=== PATIENT | female | born 1990 | race Caucasian/White ===

== ENCOUNTER 2023-06-30 06:06 | Emergency (ER) | payer OTHER, SELFPAY ==
[2023-06-30 06:07] VITALS: BP 189/113
[2023-06-30 06:58] VITALS: BMI 36.8
[2023-06-30 07:20] LABS: Urine Albumin Negative (Neg - Trace); Urine Bilirubin Negative (Negative); Urine Character Clear (Clear); Urine Color Yellow; Urine Glucose Negative (Negative); Urine Ketone Trace (Negative); Urine Leukocyte Negative (Negative); Urine Nitrite Negative (Negative); Urine Occult Blood 4+ (Negative); Urine Urobilinogen Negative (Neg - 1+)
[2023-06-30] MEDS: TORADOL 30 MG IV (07:28)
[2023-06-30] MEDS: ZOFRAN 4 MG IV (07:29)
--- NOTE | 2023-06-30 07:33 | ED.GENMED ---
History of Present Illness
General
Chief Complaint: Back Pain
Source: patient
Time Seen by Provider: 06/30/23 07:07
Travel History
Have you had any contact with someone who has COVID-19?: No
Do you have any symptoms of coronavirus? Fever > 100 degrees, chills, cough, shortness of breath, sore throat, loss of taste or smell, muscle aches, or headache?: No
History of Present Illness
History of Present Illness:
32-year-old female with past medical history of anxiety, GERD, asthma presenting to the emergency department for left flank pain x 2 days, seemingly gradual in onset but at times having worse bursts of pain, this morning pain was worse, cold sweats,
nausea and attempted to go to work but was sent to the ER for further evaluation due to the continued pain. Patient has not attempted anything for pain in the 2 days. She denies any fevers, rigors, vomiting, bowel changes, dysuria or hematuria.
Patient does states she has a sensation of incomplete emptying of her bladder. Denies any history of similar. Social history noncontributory. Last menstrual period was 1 week ago. Patient has no concern for .
Past History
Past History
ED Past Medical History: Asthma, GERD and Psychiatric; Negative HTN, Hypercholesterolemia or NIDDM
ED Past Surgical History: Appendectomy, Cholecystectomy and Orthopedic (Left foot surgery)
Social History
Tobacco: Former smoker
Alcohol: Occasional
Drug: None
Personal: Single
Living: with family
Review of Systems
Review of Systems
All Other Systems: ROS reviewed and negative except as documented in HPI and ROS
Phy Exam
Physical Exam
Physical Exam:
GENERAL: Alert , appears mildly uncomfortable
EYE: clear conjunctiva b/l
HEAD: NCAT
ENT: o/p clr, mmm.
ABDOMEN: Soft, without focal tenderness, no r/g, moderate left CVA tenderness,
NEUROLOGICAL: Alert and oriented
SKIN: Warm and dry, skin intact.
MUSCULOSKELETAL: , well perfused.
PSYCH: Normal and appropriate interaction.
Scores
Heart Failure Risk
Heart Failure Risk Score: Not Applicable
Heart Score for Chest Pain Patients
STEMI patient?: Not applicable
Withdrawal Assessment of Alcohol
Withdrawal Assessment Completed?: Not applicable
Course
Orders/Labs/Results
Orders:
Orders
06/30/23 06:54
Urinalysis Reflex To Culture Urgent
Date Specimen was Collected: 06/30/23
Time Specimen was Collected: 06:50
Urine Microscopic Reflex Cult Urgent
06/30/23 07:19
Ketorolac [Toradol] 30 mg IV NOW STA
Ondansetron Injectable [Zofran] 4 mg IV NOW STA
06/30/23 07:20
CT Abd/pel Without Iv Or Oral Urgent
Comment:
Reason For Exam: left flank pain
Test Result ONCE
06/30/23 07:28
Complete Blood Count/With Diff Urgent
Comprehensive Metabolic Panel Urgent
HCG, Serum Qualitative Screen Urgent
Abnormal Lab Results
06/30/23 06/30/23
06:54 07:28
MCH 31.9 H pg
(27.0-31.0)
Absolute Neuts (auto) 7.8 H 10^3/uL
(1.4-6.5)
Neutrophils % 79.8 H %
(42.2-75.2)
Lymphocytes % 14.0 L %
(20.5-51.1)
Glucose 124 H mg/dl
(70-99)
AST 42 H U/L
(14-36)
ALT 59 H U/L
(0-35)
Urine Ketones Trace A
(Negative)
Ur Occult Blood Reflex 4+ A
(Negative)
Urine RBC 11-15 A /HPF
(0-2)
Urine Bacteria (Reflex) Few A
(Negative)
06/30/23 07:28
06/30/23 07:28
Vital Signs
Initial and Last Documented VS:
Initial Vital Signs
Temp Pulse Resp BP Pulse Ox
98.3 F 88 18 189/113 100
06/30/23 06:07 06/30/23 06:07 06/30/23 06:07 06/30/23 06:07 06/30/23 06:07
Last Documented Vital Signs
Temp Pulse Resp BP Pulse Ox
98.3 F 98 16 126/87 100
06/30/23 09:00 06/30/23 09:00 06/30/23 09:00 06/30/23 09:00 06/30/23 09:00
MDM/Problems Addressed
Differential Diagnosis Includes:
, renal/ureteral colic/kidney stone, UTI/pyelonephritis, muscular etiology
MDM/Problems Addressed:
32-year-old female presenting the emergency department for evaluation of left flank pain x 2 days, worse today. Patient has not attempted any medications for relief. Blood pressure was noted from triage and significantly elevated. Will repeat
this while in the emergency department. Urinalysis was sent from triage and shows 4+ microscopic hematuria. Suspect renal/ureteral colic to be most likely diagnosis. Labs and CT ordered. Toradol and Zofran ordered for symptomatic relief.
Reassessment following.
*Radiology
Radiology exam reviewed: radiology read reviewed
*Pulse Oximetry
Patient hypoxic: no
*Critical Care Note
Total Time (30-74mins, 75-104mins- exclusive of procedures): Not Applicable
Patient Management
Escalation/DeEscalation of care consider admission/obs:
Patient CT scan shows a 3 mm calculus at the left UVJ. There is no hydronephrosis. Patient's pain is well-controlled. No signs of infection. Will treat with naproxen and Flomax. Information for urology provided. Patient is otherwise stable for
discharge home and aware of return precautions emergency department.
ED Attending Note
-
Portions of this chart may have been created with voice recognition software.� Occasional wrong word or��sound alike� substitutions may have occurred due to the inherent limitations of voice recognition software.
Discharge Plan
Departure
Patient Disposition: Home (Routine Discharge)
Date of Disposition: 06/30/23
Time of Disposition: 08:45
Patient with high blood pressure during this ER visit?: Yes
Discharge Problem:
Ureteral colic
Instructions: Kidney Stones (DC)
Prescriptions:
New
naproxen 500 mg tablet
500 mg PO BID PRN (Reason: Pain) Qty: 20 0RF
tamsulosin [Flomax] 0.4 mg capsule
0.4 mg PO DAILY Qty: 10 0RF
No Action
ibuprofen 200 MG tablet
200 mg PO Q4HPRN PRN (Reason: mild foot pain)
dexmethylphenidate [Focalin] 5 mg Tablet
15 mg PO .PMPRN PRN (Reason: as directed)
dexmethylphenidate [Focalin] 10 mg Tablet
30 mg PO .AMPRN PRN (Reason: as directed)
clonidine HCl 0.2 mg Tablet
0.2 mg PO HS
venlafaxine [Effexor] 50 mg Tablet
50 mg PO DAILY
levalbuterol HCl
1 puff inhalation PRN PRN (Reason: as directed)
Referrals:
Richard Metcalf Jr., MD [Active] -
Destiny Ray CRNP [Family Provider] -
Stand Alone Forms: Return to Work
Interventions
Interventions:
*Risk Screen - Suicide Last Done: 06/30/23 06:07
*General Assessment Last Done: 06/30/23 06:07
*Neglect/Abuse Screening Last Done: 06/30/23 06:07
ED- Fall Risk Assessment Last Done: 06/30/23 06:07
*ED COVID-19 Vaccine History Last Done: 06/30/23 06:07
*Nursing Disposition Last Done: 06/30/23 09:02
ED-Musculoskeletal Assessment Last Done: 06/30/23 06:47
Discharge Date and Time
Discharge Date/Time: 06/30/23 09:03
[2023-06-30 07:34] VITALS: BP 133/98
[2023-06-30 07:36] LABS: % Basophils 0.5 % (0-2); % Eosinophils 1.4 % (0-6); % Immature Granulocytes 0.3 % (0-0.5); % Neutrophils 79.8 % (42.2-75.2); Absolute Basophils 0.1 10^3/uL (0-0.2); Absolute Eosinophils 0.1 10^3/uL (0-0.7); Absolute Lymphocytes 1.4 10^3/uL (1.2-3.4); Absolute Monocytes 0.4 10^3/uL (0.1-0.6); Absolute Neutrophils 7.8 10^3/uL (1.4-6.5); Hematocrit 37.8 % (37.0-47.0); Hemoglobin 13.7 g/dL (12.0-16.0); Mean Corp Hgb Conc. 36.2 g/dL (33.0-37.0); Mean Corpuscular Hgb 31.9 pg (27.0-31.0); Mean Corpuscular Volume 88.1 fL (81.0-99.0); Mean Platelet Volume 8.8 fL (7.4-10.4); Nucleated Red Blood Cells % 0 %; Platelet Count 309 10^3/uL (130-400); Red Blood Cell Count 4.29 10^6/uL (4.20-5.40); Red Cell Dist. Width 12.2 % (11.5-14.5); White Blood Cell Count 9.8 10^3/uL (4.8-10.8)
[2023-06-30 07:43] LABS: Urine Bacteria Few (Negative); Urine Squamous Cell 16-20 /LPF (Few)
[2023-06-30 07:47] LABS: HCG, Serum Qualitative Screen Negative
[2023-06-30 07:50] LABS: ALT (SGPT) 59 U/L (0-35); AST (SGOT) 42 U/L (14-36); Albumin 4.3 g/dl (3.5-5.0); Alkaline Phosphatase 74 U/L (38-126); Blood Urea Nitrogen 9 mg/dl (7-17); Calcium 9.3 mg/dl (8.4-10.2); Carbon Dioxide 28 mmol/L (22-30); Chloride 104 mmol/L (98-107); Estimated Creatinine Clearance 123 ml/min; Glucose 124 mg/dl (70-99); Potassium 3.7 mmol/L (3.5-5.1); Sodium 138 mmol/L (135-145); Total Bilirubin 1.3 mg/dl (0.2-1.3); eGFR > 60.00
[2023-06-30 09:00] VITALS: BP 126/87
== END 2023-06-30 09:03 | disposition home or self-care (01) ==
LOC: EMR 06:06
PROVIDERS: Physician Assistant Medical; EMERGENCY PHYSICIAN Emergency Medicine; FAMILY PHYSICIAN Nurse Practitioner Adult Health
DX: N23 Unspecified renal colic (principal); F41.9 Anxiety disorder, unspecified; J45.909 Unspecified asthma, uncomplicated; K21.9 Gastro-esophageal reflux disease without esophagitis; Z87.891 Personal history of nicotine dependence
CPT/HCPCS: 99284; 96374; 96375; 74176; 80053; 81003; 81015; 84703; 85025

== ENCOUNTER 2023-07-03 18:55 | Emergency (ER) | payer OTHER, SELFPAY ==
[2023-07-03 19:00] VITALS: BP 196/96
[2023-07-03 19:11] LABS: % Basophils 0.6 % (0-2); % Eosinophils 1.2 % (0-6); % Immature Granulocytes 0.3 % (0-0.5); % Lymphocytes 33.3 % (20.5-51.1); % Monocytes 4.6 % (1.7-9.3); Absolute Basophils 0.1 10^3/uL (0-0.2); Absolute Eosinophils 0.1 10^3/uL (0-0.7); Absolute Lymphocytes 3.2 10^3/uL (1.2-3.4); Absolute Monocytes 0.5 10^3/uL (0.1-0.6); Absolute Neutrophils 5.8 10^3/uL (1.4-6.5); Hemoglobin 15.4 g/dL (12.0-16.0); Mean Corp Hgb Conc. 35.8 g/dL (33.0-37.0); Mean Corpuscular Hgb 31.1 pg (27.0-31.0); Mean Corpuscular Volume 86.9 fL (81.0-99.0); Mean Platelet Volume 8.2 fL (7.4-10.4); Nucleated Red Blood Cells % 0 %; Platelet Count 408 10^3/uL (130-400); Red Blood Cell Count 4.95 10^6/uL (4.20-5.40); Red Cell Dist. Width 11.9 % (11.5-14.5); White Blood Cell Count 9.7 10^3/uL (4.8-10.8)
[2023-07-03 19:30] LABS: ALT (SGPT) 59 U/L (0-35); AST (SGOT) 42 U/L (14-36); Albumin 4.9 g/dl (3.5-5.0); Alkaline Phosphatase 95 U/L (38-126); Blood Urea Nitrogen 4 mg/dl (7-17); Calcium 9.5 mg/dl (8.4-10.2); Carbon Dioxide 27 mmol/L (22-30); Glucose 97 mg/dl (70-99); Total Bilirubin 1.7 mg/dl (0.2-1.3); Total Protein 8.2 g/dl (6.3-8.2); eGFR > 60.00
[2023-07-03 19:41] LABS: Chloride 103 mmol/L (98-107); Potassium 3.9 mmol/L (3.5-5.1); Sodium 137 mmol/L (135-145)
--- NOTE | 2023-07-03 21:46 | ED.GENMED ---
History of Present Illness
<Carolin Chand NP - Last Filed: 07/06/23 15:02>
General
Chief Complaint: Flank Pain
Source: patient
Exam Limitations: none
Time Seen by Provider: 07/03/23 21:37
Nursing documentation reviewed up to this point in time: agreed with
Travel History
Have you had any contact with someone who has COVID-19?: No
Do you have any symptoms of coronavirus? Fever > 100 degrees, chills, cough, shortness of breath, sore throat, loss of taste or smell, muscle aches, or headache?: No
History of Present Illness
History of Present Illness:
Patient to ED with complaint of worsening left flank pain, vomiting. Unable to keep anything down. States she was seen in ED on Monday, dx with left ureteral stone at [facility]. Discharged home on flomax. States flomax makes her feel worse. Brought
to ED by family for eval. Denies fever/chills.
Past History
<Carolin Chand NP - Last Filed: 07/06/23 15:02>
Past History
ED Past Medical History: Asthma, GERD and Psychiatric; Negative HTN, Hypercholesterolemia or NIDDM
ED Past Surgical History: Appendectomy, Cholecystectomy and Orthopedic (Left foot surgery)
Social History
Tobacco: Former smoker
Alcohol: Occasional
Drug: None
Personal: Single
Living: with family
Review of Systems
<Carolin Chand NP - Last Filed: 07/06/23 15:02>
Review of Systems
Allergies reviewed?: Yes
All Other Systems: ROS reviewed and negative except as documented in HPI and ROS
Constitutional: Reports no symptoms
EENT: Reports no symptoms
Respiratory: Reports no symptoms
Cardiac: Reports no symptoms
ABD/GI: Reports nausea and vomiting
: Reports flank pain (worsening left flank pain, vomiting)
Musculoskeletal: Reports no symptoms
Skin: Reports no symptoms
Neurological: Reports no symptoms
Psychiatric: Reports no symptoms
Phy Exam
<Carolin Chand SLIP SEAT COVERER - Last Filed: 07/06/23 15:02>
General Physical Exam
General Presentation: well appearing
General age: appears stated age
General Skin: warm and dry
General Habitus: normal
General Mental: alert
Gastrointestinal Exam
Gastrointestinal Exam: normal bowel sounds, non tender, soft, no organomegaly, no pulsatile mass, non distended and other (Left flank pain)
Musculoskeletal Exam
Musculoskeletal Exam: full ROM and neuro vasc intact
Skin Exam
Skin Exam: normal color, warm/dry and no rash
Psychiatric Exam
Psychiatric Exam: normal mood/affect
Course
<Carolin Chand SLIP SEAT COVERER - Last Filed: 07/06/23 15:02>
Orders/Labs/Results
Orders:
Orders
07/03/23 19:06
Complete Blood Count/With Diff Urgent
Comprehensive Metabolic Panel Urgent
HCG, Serum Qualitative Screen Urgent
Comment: ADD ON
07/03/23 21:41
0.9% Sodium Chloride 1000 ml [Nss] 1,000 ml IV BOLUS
Ketorolac [Toradol] 30 mg IV NOW STA
Ondansetron Injectable [Zofran] 4 mg IV NOW STA
07/03/23 21:44
CT Abd/pel Without Iv Or Oral Urgent
Comment:
Reason For Exam: worsening flank pain, vomiting
07/03/23 21:49
Add On- LAB Urgent
Tests Added?: serum HCG qualitative
07/03/23 22:33
Urinalysis Reflex To Culture Urgent
Date Specimen was Collected: 07/03/23
Time Specimen was Collected: 22:32
Urine Microscopic Reflex Cult Urgent
Urine Culture Urgent
ROD Source: U
Specimen Description:
Date Specimen was Collected: 07/03/23
Time Specimen was Collected: 22:32
07/03/23 23:55
Sulfamethox./Trimethoprim Ds [Bactrim Ds 800 mg/160 mg] 1 tablet PO NOW STA
Abnormal Lab Results
07/03/23 07/03/23
19:06 22:33
MCH 31.1 H pg
(27.0-31.0)
Plt Count 408 H D 10^3/uL
(130-400)
BUN 4 L mg/dl
(7-17)
Total Bilirubin 1.7 H mg/dl
(0.2-1.3)
AST 42 H U/L
(14-36)
ALT 59 H U/L
(0-35)
Urine Ketones 2+ A
(Negative)
Ur Occult Blood Reflex Trace A
(Negative)
Leukocyte Esterase Rfl 1+ A
(Negative)
Urine WBC (Reflex) 16-20 A /HPF
(0-5)
Urine Bacteria (Reflex) Few A
(Negative)
07/03/23 19:06
07/03/23 19:06
Vital Signs
Initial and Last Documented VS:
Initial Vital Signs
Temp Pulse Resp BP Pulse Ox
98.3 F 122 18 196/96 99
07/03/23 19:00 07/03/23 19:00 07/03/23 19:00 07/03/23 19:00 07/03/23 19:00
Last Documented Vital Signs
Temp Pulse Resp BP Pulse Ox
98.3 F 84 16 161/98 95
07/03/23 19:00 07/04/23 00:35 07/04/23 00:35 07/04/23 00:35 07/04/23 00:35
<Mary Carreon, SLIP SEAT COVERER - Last Filed: 07/04/23 16:15>
Orders/Labs/Results
Orders:
Orders
07/03/23 19:06
Complete Blood Count/With Diff Urgent
Comprehensive Metabolic Panel Urgent
HCG, Serum Qualitative Screen Urgent
Comment: ADD ON
07/03/23 21:41
0.9% Sodium Chloride 1000 ml [Nss] 1,000 ml IV BOLUS
Ketorolac [Toradol] 30 mg IV NOW STA
Ondansetron Injectable [Zofran] 4 mg IV NOW STA
07/03/23 21:44
CT Abd/pel Without Iv Or Oral Urgent
Comment:
Reason For Exam: worsening flank pain, vomiting
07/03/23 21:49
Add On- LAB Urgent
Tests Added?: serum HCG qualitative
07/03/23 22:33
Urinalysis Reflex To Culture Urgent
Date Specimen was Collected: 07/03/23
Time Specimen was Collected: 22:32
Urine Microscopic Reflex Cult Urgent
Urine Culture Urgent
ROD Source: U
Specimen Description:
Date Specimen was Collected: 07/03/23
Time Specimen was Collected: 22:32
07/03/23 23:55
Sulfamethox./Trimethoprim Ds [Bactrim Ds 800 mg/160 mg] 1 tablet PO NOW STA
Abnormal Lab Results
07/03/23 07/03/23
19:06 22:33
MCH 31.1 H pg
(27.0-31.0)
Plt Count 408 H D 10^3/uL
(130-400)
BUN 4 L mg/dl
(7-17)
Total Bilirubin 1.7 H mg/dl
(0.2-1.3)
AST 42 H U/L
(14-36)
ALT 59 H U/L
(0-35)
Urine Ketones 2+ A
(Negative)
Ur Occult Blood Reflex Trace A
(Negative)
Leukocyte Esterase Rfl 1+ A
(Negative)
Urine WBC (Reflex) 16-20 A /HPF
(0-5)
Urine Bacteria (Reflex) Few A
(Negative)
07/03/23 19:06
07/03/23 19:06
Vital Signs
Initial and Last Documented VS:
Initial Vital Signs
Temp Pulse Resp BP Pulse Ox
98.3 F 122 18 196/96 99
07/03/23 19:00 07/03/23 19:00 07/03/23 19:00 07/03/23 19:00 07/03/23 19:00
Last Documented Vital Signs
Temp Pulse Resp BP Pulse Ox
98.3 F 84 16 161/98 95
07/03/23 19:00 07/04/23 00:35 07/04/23 00:35 07/04/23 00:35 07/04/23 00:35
<Carolin Chand SLIP SEAT COVERER - Last Filed: 07/06/23 15:02>
*Radiology
Radiology exam reviewed: radiology read reviewed
*Pulse Oximetry
Patient hypoxic: no
<Mary Carreon SLIP SEAT COVERER - Last Filed: 07/04/23 16:15>
*Critical Care Note
Total Time (30-74mins, 75-104mins- exclusive of procedures): Not Applicable
<Mary Carreon SLIP SEAT COVERER - Last Filed: 07/04/23 16:15>
Update Note
Update Note:
Spoke with patient on the phone, she states she passed a kidney stone this morning. She is feeling much better. She is taking the antibiotic, and she followed up with her PCP Destiny Whitley.
ED Attending Note
<Carolin Chand NP - Last Filed: 07/06/23 15:02>
-
Portions of this chart may have been created with voice recognition software.� Occasional wrong word or��sound alike� substitutions may have occurred due to the inherent limitations of voice recognition software.
Discharge Plan
Departure
Patient Disposition: Home (Routine Discharge)
Date of Disposition: 07/03/23
Time of Disposition: 23:55
Patient with high blood pressure during this ER visit?: No
Condition: Good
Covid-19: Not Applicable
Discharge Problem:
UTI (urinary tract infection)
Instructions: Urinary tract infections in adults, Flank Pain (DC)
Prescriptions:
New
sulfamethoxazole-trimethoprim [Bactrim DS] 800-160 mg tablet
1 tab PO BID Qty: 9 0RF
No Action
ibuprofen 200 MG tablet
200 mg PO Q4HPRN PRN (Reason: mild foot pain)
dexmethylphenidate [Focalin] 5 mg Tablet
15 mg PO .PMPRN PRN (Reason: as directed)
dexmethylphenidate [Focalin] 10 mg Tablet
30 mg PO .AMPRN PRN (Reason: as directed)
clonidine HCl 0.2 mg Tablet
0.2 mg PO HS
venlafaxine [Effexor] 50 mg Tablet
50 mg PO DAILY
levalbuterol HCl
1 puff inhalation PRN PRN (Reason: as directed)
naproxen 500 mg tablet
500 mg PO BID PRN (Reason: Pain) Qty: 20 0RF
tamsulosin [Flomax] 0.4 mg capsule
0.4 mg PO DAILY Qty: 10 0RF
Referrals:
Destiny Ray CRNP [Family Provider] - Follow up in 2-3 days
Interventions
Interventions:
*Risk Screen - Suicide Last Done: 07/03/23 19:00
*General Assessment Last Done: 07/03/23 19:00
*Neglect/Abuse Screening Last Done: 07/03/23 22:22
ED- Fall Risk Assessment Last Done: 07/03/23 22:22
*ED COVID-19 Vaccine History Last Done: 07/03/23 22:29
*Nursing Disposition Last Done: 07/04/23 00:35
GB-Drzgnt-Vvjchswxzx Assessment Last Done: 07/03/23 22:22
ED-Female Genitourinary Assessment Last Done: 07/03/23 22:22
Discharge Date and Time
Discharge Date/Time: 07/04/23 00:35
[2023-07-03 22:30] VITALS: BMI 36.7
[2023-07-03 22:33] LABS: HCG, Serum Qualitative Screen Negative
[2023-07-03] MEDS: NSS 1000 IV (22:35)
[2023-07-03] MEDS: ZOFRAN 4 MG IV (22:35)
[2023-07-03] MEDS: TORADOL 30 MG IV (22:42)
[2023-07-03 22:55] VITALS: BP 130/94
[2023-07-03 23:06] LABS: Urine Albumin Negative (Neg - Trace); Urine Bilirubin Negative (Negative); Urine Character Slightly Cloudy (Clear); Urine Color Yellow; Urine Glucose Negative (Negative); Urine Ketone 2+ (Negative); Urine Leukocyte 1+ (Negative); Urine Nitrite Negative (Negative); Urine Occult Blood Trace (Negative); Urine Specific Gravity 1.015 (<1.030); Urine Urobilinogen Negative (Neg - 1+); Urine pH 6.5 (5.0-9.0)
[2023-07-03 23:17] LABS: Urine Bacteria Few (Negative); Urine Red Blood Cell 0-2 /HPF (0-2); Urine Squamous Cell 26-30 /LPF (Few); Urine White Cell 16-20 /HPF (0-5)
[2023-07-04] MEDS: BACTRIM DS 800 MG/160 MG 1 TABLET PO (00:26)
[2023-07-04 00:35] VITALS: BP 161/98
== END 2023-07-04 00:35 | disposition home or self-care (01) ==
LOC: EMR 18:55
PROVIDERS: Emergency Medicine; Nurse Practitioner; EMERGENCY PHYSICIAN Emergency Medicine; FAMILY PHYSICIAN Nurse Practitioner Adult Health
DX: N39.0 Urinary tract infection, site not specified (principal); J45.909 Unspecified asthma, uncomplicated; K21.9 Gastro-esophageal reflux disease without esophagitis; Z87.891 Personal history of nicotine dependence
CPT/HCPCS: 99284; 96374; 96375; 96361; 74176; 80053; 81003; 81015; 84703; 85025; 87086

== ENCOUNTER → 2023-07-05 10:15 | Outpatient (REF) | payer OTHER, SELFPAY ==
[2023-07-09 23:47] LABS: Stone Analysis Mass 23 mg
== END ==
LOC: REG 10:15
PROVIDERS: ATTENDING PHYSICIAN Nurse Practitioner Adult Health
DX: N20.0 Calculus of kidney (principal)
CPT/HCPCS: 82365

== ENCOUNTER → 2023-10-03 07:00 | Outpatient (REF) | payer OTHER, SELFPAY ==
[2023-10-03 07:38] LABS: Urine Albumin Negative (Neg - Trace); Urine Bilirubin Negative (Negative); Urine Character Clear (Clear); Urine Color Yellow; Urine Glucose Negative (Negative); Urine Ketone Negative (Negative); Urine Leukocyte 2+ (Negative); Urine Nitrite Negative (Negative); Urine Occult Blood Trace (Negative); Urine Urobilinogen Negative (Neg - 1+)
[2023-10-03 07:51] LABS: Urine Bacteria Moderate (Negative); Urine Red Blood Cell 0-2 /HPF (0-2)
[2023-10-03 08:09] LABS: ALT (SGPT) 75 U/L (0-35); AST (SGOT) 43 U/L (14-36); Albumin 4.5 g/dl (3.5-5.0); Alkaline Phosphatase 71 U/L (38-126); Blood Urea Nitrogen 14 mg/dl (7-17); Calcium 9.6 mg/dl (8.4-10.2); Carbon Dioxide 26 mmol/L (22-30); Chloride 101 mmol/L (98-107); Glucose 104 mg/dl (70-99); HDL Cholesterol 45 mg/dl; LDL Cholesterol, Calculated 193 mg/dl; Potassium 4.7 mmol/L (3.5-5.1); Sodium 138 mmol/L (135-145); Total Bilirubin 1.8 mg/dl (0.2-1.3); Total Cholesterol 291 mg/dl (50-199); Total Protein 7.4 g/dl (6.3-8.2); Triglyceride 269 mg/dl (10-149); Very Low Density Lipoprotein 53 mg/dl (0-30); eGFR > 60.00
[2023-10-03 09:00] LABS: Glycohemoglobin (HgbA1c) 5.6 % (4.0-5.6)
[2023-10-03 09:18] LABS: TSH Reflex To Free T4 4.55 uIU/ml (0.47-4.68)
[2023-10-03 09:38] LABS: Vitamin B12 357 pg/ml (239-931)
[2023-10-03 15:09] LABS: GGTP 45 U/L (12-43)
[2023-10-03 16:01] LABS: Hepatitis B Surface Antigen Negative (Negative)
[2023-10-03 16:20] LABS: Hepatitis B Core Ab, Total Negative (Negative); Hepatitis C Antibody Negative (Negative)
[2023-10-03 17:14] LABS: Hepatitis A Antibody, Total Positive (Negative)
== END ==
LOC: REG 07:00
PROVIDERS: ATTENDING PHYSICIAN Nurse Practitioner Adult Health
DX: Z13.9 Encounter for screening, unspecified (principal); R79.89 Other specified abnormal findings of blood chemistry; E55.9 Vitamin D deficiency, unspecified
CPT/HCPCS: 36415; 80053; 80061; 81003; 81015; 82306; 82607; 82977; 83036; 84443; 86704; 86708; 86803; 87086; 87340

== ENCOUNTER 2024-03-14 15:21 | Emergency (ER) | payer OTHER, SELFPAY ==
[2024-03-14 15:23] VITALS: BP 200/131
[2024-03-14 15:27] VITALS: BP 178/110
--- NOTE | 2024-03-14 15:28 | EDRN ---
Pt reports she has a 1600 US scheduled here in [place].
--- NOTE | 2024-03-14 15:33 | EDRN ---
Since pt is now an ER pt US will cancel the outpatient study.
[2024-03-14 15:46] VITALS: BMI 38.1
--- NOTE | 2024-03-14 15:48 | ED.GENMED ---
History of Present Illness
General
Chief Complaint: Flank Pain
Source: patient
Exam Limitations: none
Time Seen by Provider: 03/14/24 15:45
Nursing documentation reviewed up to this point in time: agreed with
History of Present Illness
History of Present Illness:
33-year-old female history of kidney stones presents emergency department with concerns of right-sided flank pain, nausea, vomiting for the past 4 days. Patient reports that she has had 1 kidney stone in the past few months ago and states that this
feels like that. She states that she has seen her primary care doctor who did urinalysis which demonstrated occult blood and ordered a x-ray as well as a ultrasound of the kidneys. Patient states that the x-ray was negative and she is going to go
for the ultrasound however she had increasing pain and was told to be evaluated in the emergency department. Patient denies any fevers or chills, burning with urination, urinary frequency. Patient has a past abdominal surgical history of
appendectomy, cholecystectomy. Patient states that her LMP ended a few days ago.
Past History
Past History
ED Past Medical History: Asthma, GERD and Psychiatric; Negative HTN, Hypercholesterolemia or NIDDM
ED Past Surgical History: Appendectomy, Cholecystectomy and Orthopedic (Left foot surgery)
Social History
Tobacco: Former smoker
Alcohol: Occasional
Drug: None
Personal: Single
Living: with family
Review of Systems
Review of Systems
All Other Systems: ROS reviewed and negative except as documented in HPI and ROS
Phy Exam
Physical Exam
Physical Exam:
General: Patient is well appearing and in no acute distress; non-toxic
Skin: Warm and dry, no rashes or lesions
Head: Normocephalic, atraumatic
Eyes: Sclera non-icteric. EOMs intact.
Cardiac: Regular rate and rhythm, no murmurs.
Pulm: Normal respiratory effort, no wheezes, rales, or rhonchi
Abdomen: No tenderness to palpation, no palpable abdominal masses, no guarding. No CVA tenderness bilaterally.
Neuro: CN II-XII intact, no focal neurologic deficits.
Psychiatric: Appropriate mood and affect.
Course
Orders/Labs/Results
Orders:
Orders
03/14/24 15:38
Test Result ONCE
03/14/24 15:50
Complete Blood Count/With Diff Urgent
Comprehensive Metabolic Panel Urgent
HCG, Serum Qualitative Screen Urgent
Lipase Urgent
Urinalysis Reflex To Culture Urgent
Date Specimen was Collected: 03/14/24
Time Specimen was Collected: 15:38
Urine Microscopic Reflex Cult Urgent
03/14/24 16:10
Ketorolac [Toradol] 15 mg .ROUTE .STK-MED ONE
Ondansetron Injectable [Zofran] 4 mg .ROUTE .STK-MED ONE
03/14/24 16:12
Ketorolac [Toradol] 15 mg IV NOW STA
Ondansetron Injectable [Zofran] 4 mg IV NOW STA
03/14/24 16:19
CT Abd/pel Without Iv Or Oral Urgent
Comment:
Reason For Exam: righjt flank pain
Abnormal Lab Results
03/14/24
15:50
Plt Count 418 H 10^3/uL
(130-400)
Chloride 96 L mmol/L
(98-107)
Glucose 115 H mg/dl
(70-99)
Total Bilirubin 1.5 H mg/dl
(0.2-1.3)
AST 98 H U/L
(14-36)
ALT 144 H U/L
(0-35)
Albumin 5.1 H g/dl
(3.5-5.0)
Ur Occult Blood Reflex 4+ A
(Negative)
Urine Bacteria (Reflex) Few A
(Negative)
03/14/24 15:50
03/14/24 15:50
Vital Signs
Initial and Last Documented VS:
Initial Vital Signs
Temp Pulse Resp BP Pulse Ox
98.6 F 123 16 200/131 99
03/14/24 15:23 03/14/24 15:23 03/14/24 15:23 03/14/24 15:23 03/14/24 15:23
Last Documented Vital Signs
Temp Pulse Resp BP Pulse Ox
98.6 F 108 18 149/109 100
03/14/24 15:23 03/14/24 18:25 03/14/24 18:25 03/14/24 18:25 03/14/24 18:25
MDM/Problems Addressed
Differential Diagnosis Includes:
ddx include nephrolithiasis, pyelonephritis, acute cystitis, gastroenteritis, viral syndrome, lumbar sprain, renal cyst
MDM/Problems Addressed:
33-year-old female history of kidney stones presents emergency department with concerns of right-sided flank pain, nausea, vomiting for the past 4 days. Patient reports that she has had 1 kidney stone in the past few months ago and states that this
feels like that. Urinalysis today reveals occult blood. Patient sent for CT scan which was negative for kidney stone. Labs reviewed, did note elevated LFTs (enlarged liver also noted on CT), discussed findings with patient, patient is aware of LFT
elevation--this is being worked up with her PCP. Etiology of patient's symptoms unclear at this time. Urinalysis showed no evidence of infection. Recent menstruation may explain occult blood. Return precautions discussed with patient, stable for
discharge, patient will follow up with PCP for further outpatient workup.
Chronic conditions affecting care:
asthma
*Pulse Oximetry
Patient hypoxic: no
*Critical Care Note
Total Time (30-74mins, 75-104mins- exclusive of procedures): Not Applicable
Data Reviewed
Review of Other/Old Records Reveals: Records (reviewed er physician documentation from jun 30 and ) and Discharge Summary (no discharge summary in [facility] to review)
Source: patient and records
Prescriptions/Medications Considered But Not Given:
n/a
Further Testing Considered But Not Given:
n/a
Patient Management
Escalation/DeEscalation of care consider admission/obs:
Reviewed case with ER attending, patient stable for discharge
Update Note
Update Note:
Update 6:08 PM�patient reports that she still has left leg pain but is comfortable at this time, requesting further pain medication, has not had any vomiting while here in the emergency department.
ED Attending Note
-
Portions of this chart may have been created with voice recognition software.� Occasional wrong word or��sound alike� substitutions may have occurred due to the inherent limitations of voice recognition software.
Discharge Plan
Departure
Patient Disposition: Home (Routine Discharge)
Date of Disposition: 03/14/24
Time of Disposition: 18:20
Patient with high blood pressure during this ER visit?: Yes
Condition: Good
Discharge Problem:
Nausea & vomiting, Flank pain
Instructions: Flank Pain (DC), Nausea and vomiting in adults, BLOOD PRESSURE
Prescriptions:
New
ondansetron 4 mg tablet,disintegrating
4 mg PO Q6H Qty: 8 0RF
No Action
ibuprofen 200 MG tablet
200 mg PO Q4HPRN PRN (Reason: mild foot pain)
dexmethylphenidate [Focalin] 5 mg Tablet
15 mg PO .PMPRN PRN (Reason: as directed)
dexmethylphenidate [Focalin] 10 mg Tablet
30 mg PO .AMPRN PRN (Reason: as directed)
clonidine HCl 0.2 mg Tablet
0.2 mg PO HS
venlafaxine [Effexor] 50 mg Tablet
50 mg PO DAILY
levalbuterol HCl
1 puff inhalation PRN PRN (Reason: as directed)
naproxen 500 mg tablet
500 mg PO BID PRN (Reason: Pain) Qty: 20 0RF
tamsulosin [Flomax] 0.4 mg capsule
0.4 mg PO DAILY Qty: 10 0RF
sulfamethoxazole-trimethoprim [Bactrim DS] 800-160 mg tablet
1 tab PO BID Qty: 9 0RF
Referrals:
Destiny Ray CRNP [Family Provider] -
Stand Alone Forms: Return to Work
Activity Restrictions/Additional Instructions:
Please follow-up with your primary care provider regarding your elevated liver function testing as well as your flank pain.
Zofran has been sent to your pharmacy. You can dissolve 1 tablet under the tongue every 6 hours as needed.
Please return to the emergency department should you develop an acute worsening of your symptoms, chest pain, shortness of breath, lightheadedness, dizziness, syncopal episodes, abdominal pain, fevers or chills, burning with urination, urinary
frequency or urgency, or any other signs or symptoms concerning to you.
Interventions
Interventions:
*Risk Screen - Suicide Last Done: 03/14/24 15:23
*General Assessment Last Done: 03/14/24 16:21
*Neglect/Abuse Screening Last Done: 03/14/24 15:23
ED- Fall Risk Assessment Last Done: 03/14/24 16:20
*Nursing Disposition Last Done: 03/14/24 18:26
ZA-Exuysw-Nylyzjckoj Assessment Last Done: 03/14/24 16:20
ED-Female Genitourinary Assessment Last Done: 03/14/24 16:20
Discharge Date and Time
Discharge Date/Time: 03/14/24 18:37
Print Language: SUDANESE
[2024-03-14 16:04] LABS: Urine Albumin Negative (Neg - Trace); Urine Bilirubin Negative (Negative); Urine Character Clear (Clear); Urine Color Yellow; Urine Glucose Negative (Negative); Urine Ketone Negative (Negative); Urine Leukocyte Negative (Negative); Urine Nitrite Negative (Negative); Urine Occult Blood 4+ (Negative); Urine Specific Gravity 1.005 (<1.030); Urine Urobilinogen Negative (Neg - 1+)
[2024-03-14 16:10] LABS: % Basophils 0.6 % (0-2); % Immature Granulocytes 0.4 % (0-0.5); % Lymphocytes 25.8 % (20.5-51.1); % Monocytes 3.1 % (1.7-9.3); % Neutrophils 69.1 % (42.2-75.2); Absolute Basophils 0.1 10^3/uL (0-0.2); Absolute Eosinophils 0.1 10^3/uL (0-0.7); Absolute Lymphocytes 2.1 10^3/uL (1.2-3.4); Absolute Monocytes 0.3 10^3/uL (0.1-0.6); Absolute Neutrophils 5.7 10^3/uL (1.4-6.5); Hematocrit 39.4 % (37.0-47.0); Hemoglobin 14.3 g/dL (12.0-16.0); Mean Corp Hgb Conc. 36.3 g/dL (33.0-37.0); Mean Corpuscular Volume 85.3 fL (81.0-99.0); Mean Platelet Volume 8.7 fL (7.4-10.4); Nucleated Red Blood Cells % 0 %; Platelet Count 418 10^3/uL (130-400); Red Blood Cell Count 4.62 10^6/uL (4.20-5.40); Red Cell Dist. Width 11.9 % (11.5-14.5); White Blood Cell Count 8.3 10^3/uL (4.8-10.8)
[2024-03-14 16:13] LABS: Urine Red Blood Cell 0-2 /HPF (0-2); Urine Squamous Cell 16-20 /LPF (Few)
[2024-03-14] MEDS: TORADOL 15 MG IV (16:13)
[2024-03-14] MEDS: ZOFRAN 4 MG IV (16:13)
[2024-03-14 16:14] LABS: Urine Bacteria Few (Negative); Urine White Cell 0-2 /HPF (0-5)
[2024-03-14 16:15] LABS: HCG, Serum Qualitative Screen Negative
[2024-03-14 16:31] LABS: ALT (SGPT) 144 U/L (0-35); AST (SGOT) 98 U/L (14-36); Albumin 5.1 g/dl (3.5-5.0); Alkaline Phosphatase 72 U/L (38-126); Blood Urea Nitrogen 12 mg/dl (7-17); Carbon Dioxide 26 mmol/L (22-30); Chloride 96 mmol/L (98-107); Estimated Creatinine Clearance 109 ml/min; Glucose 115 mg/dl (70-99); Lipase 91 U/L (23-300); Potassium 3.6 mmol/L (3.5-5.1); Sodium 139 mmol/L (135-145); Total Bilirubin 1.5 mg/dl (0.2-1.3); Total Protein 8.1 g/dl (6.3-8.2); eGFR > 60.00
[2024-03-14 16:52] VITALS: BP 146/96
[2024-03-14 18:25] VITALS: BP 149/109
== END 2024-03-14 18:37 | disposition home or self-care (01) ==
LOC: EMR 15:21
PROVIDERS: EMERGENCY PHYSICIAN Emergency Medicine; FAMILY PHYSICIAN Nurse Practitioner Adult Health
DX: R11.2 Nausea with vomiting, unspecified (principal); R10.9 Unspecified abdominal pain; J45.909 Unspecified asthma, uncomplicated; K21.9 Gastro-esophageal reflux disease without esophagitis; Z87.891 Personal history of nicotine dependence; Z90.49 Acquired absence of other specified parts of digestive tract
CPT/HCPCS: 96374; 96375; 99284; 74018; 74176; 80053; 81003; 81015; 83690; 84703; 85025

== ENCOUNTER → 2024-03-29 09:48 | Outpatient (REF) | payer OTHER, SELFPAY | LOC: WDC 09:48 | PROVIDERS: ATTENDING PHYSICIAN Nurse Practitioner Adult Health | DX: N63.10 Unspecified lump in the right breast, unspecified quadrant (principal); N63.11 Unspecified lump in the right breast, upper outer quadrant | CPT/HCPCS: 76642; 77062; 77066 ==

== ENCOUNTER → 2024-04-03 11:33 | Outpatient (REF) | payer OTHER, SELFPAY ==
[2024-04-03 12:17] LABS: Urine Albumin Negative (Neg - Trace); Urine Bilirubin Negative (Negative); Urine Character Slightly Cloudy (Clear); Urine Color Yellow; Urine Glucose Trace (Negative); Urine Ketone Negative (Negative); Urine Leukocyte 2+ (Negative); Urine Nitrite Negative (Negative); Urine Occult Blood Negative (Negative); Urine Urobilinogen Negative (Neg - 1+)
[2024-04-03 12:36] LABS: Urine Bacteria Many (Negative); Urine Squamous Cell >30 /LPF (Few); Urine White Cell 16-20 /HPF (0-5)
[2024-04-03 13:30] LABS: % Basophils 0.6 % (0-2); % Eosinophils 3.6 % (0-6); % Immature Granulocytes 0.4 % (0-0.5); % Lymphocytes 31.6 % (20.5-51.1); % Monocytes 4.1 % (1.7-9.3); % Neutrophils 59.7 % (42.2-75.2); Absolute Eosinophils 0.2 10^3/uL (0-0.7); Absolute Lymphocytes 1.7 10^3/uL (1.2-3.4); Absolute Monocytes 0.2 10^3/uL (0.1-0.6); Absolute Neutrophils 3.2 10^3/uL (1.4-6.5); Hematocrit 41.4 % (37.0-47.0); Hemoglobin 14.1 g/dL (12.0-16.0); Mean Corp Hgb Conc. 34.1 g/dL (33.0-37.0); Mean Corpuscular Hgb 30.5 pg (27.0-31.0); Mean Corpuscular Volume 89.6 fL (81.0-99.0); Nucleated Red Blood Cells % 0 %; Platelet Count 333 10^3/uL (130-400); Red Blood Cell Count 4.62 10^6/uL (4.20-5.40); Red Cell Dist. Width 12.3 % (11.5-14.5); White Blood Cell Count 5.3 10^3/uL (4.8-10.8)
[2024-04-03 13:41] LABS: ALT (SGPT) 80 U/L (0-35); AST (SGOT) 56 U/L (14-36); Albumin 4.9 g/dl (3.5-5.0); Alkaline Phosphatase 61 U/L (38-126); Blood Urea Nitrogen 12 mg/dl (7-17); Calcium 9.4 mg/dl (8.4-10.2); Carbon Dioxide 26 mmol/L (22-30); Chloride 99 mmol/L (98-107); Glucose 186 mg/dl (70-99); Potassium 4.4 mmol/L (3.5-5.1); Sodium 141 mmol/L (135-145); Total Bilirubin 1.4 mg/dl (0.2-1.3); Total Protein 7.8 g/dl (6.3-8.2); eGFR > 60.00
== END ==
LOC: REG 11:33
PROVIDERS: ATTENDING PHYSICIAN Nurse Practitioner Adult Health
DX: R00.0 Tachycardia, unspecified (principal); I10 Essential (primary) hypertension; R79.89 Other specified abnormal findings of blood chemistry; R31.29 Other microscopic hematuria
CPT/HCPCS: 36415; 80053; 81003; 81015; 85025; 87086

== ENCOUNTER 2024-04-07 14:41 | Emergency (ER) | payer OTHER, SELFPAY ==
[2024-04-07 14:55] VITALS: BP 178/88
[2024-04-07 16:38] VITALS: BP 125/86; BMI 25.1
--- NOTE | 2024-04-07 17:46 | ED.GENMED ---
History of Present Illness
General
Chief Complaint: Musculo-Skeletal Complaint
Source: patient
Exam Limitations: none
Time Seen by Provider: 04/07/24 17:16
Nursing documentation reviewed up to this point in time: agreed with except (see HPI )
History of Present Illness
History of Present Illness:
Patient is a 33-year-old female who presents to the ER. Patient smashed her finger and hit it on a 4x4 piece of wood ( not a four bowman as documented in triage note . Patient complains of pain in the left index finger left thumb denies any other
injuries. She is left-hand dominant .denies any laceration.
Past History
Past History
ED Past Medical History: Asthma, GERD and Psychiatric; Negative HTN, Hypercholesterolemia or NIDDM
ED Past Surgical History: Appendectomy, Cholecystectomy and Orthopedic (Left foot surgery)
Social History
Tobacco: Former smoker
Alcohol: Occasional
Drug: None
Personal: Single
Living: with family
Review of Systems
Review of Systems
Allergies reviewed?: Yes
All Other Systems: ROS reviewed and negative except as documented in HPI and ROS
Constitutional: Reports no symptoms
Musculoskeletal: Reports other (Left index finger pain/injury)
Skin: Reports no symptoms
Neurological: Reports no symptoms
Psychiatric: Reports no symptoms
Phy Exam
General Physical Exam
General Presentation: no apparent distress
General age: appears stated age
General Skin: warm and dry
General Habitus: normal
General Mental: alert
General Hydration: appears well hydrated
Neurological Exam
Neurological Exam: alert and oriented x3
Musculoskeletal Exam
Musculoskeletal Exam: other (Left index finger with swelling and tenderness to the middle phalanx normal distal sensation no abrasions or lacerations with swelling and discomfort limited flexion)
Skin Exam
Skin Exam: normal color and warm/dry
Psychiatric Exam
Psychiatric Exam: normal mood/affect
Course
Orders/Labs/Results
Orders:
Orders
04/07/24 14:57
CR Hand - Left Min 3 Views Urgent
Comment:
Reason For Exam: injury
04/07/24 17:47
Aluminium Finger Splint Left ONCE
Comment: index finger
Ibuprofen [Motrin] 600 mg PO NOW STA
Vital Signs
Initial and Last Documented VS:
Initial Vital Signs
Temp Pulse Resp BP Pulse Ox
98.1 F 138 20 178/88 96
04/07/24 14:55 04/07/24 14:55 04/07/24 14:55 04/07/24 14:55 04/07/24 14:55
Last Documented Vital Signs
Temp Pulse Resp BP Pulse Ox
97.6 F 62 20 121/72 99
04/07/24 18:04 04/07/24 18:04 04/07/24 18:04 04/07/24 18:04 04/07/24 18:04
MDM/Problems Addressed
Differential Diagnosis Includes:
Not limited to fracture for sprain
MDM/Problems Addressed:
Patient hit left index finger as documented and has a subtle nondisplaced fracture of the middle phalanx she is tender in this area patient splinted will DC with outpatient Ortho hand follow-up. Discussed ice and ibuprofen
*Radiology
Radiology exam reviewed: radiology read reviewed
*Critical Care Note
Total Time (30-74mins, 75-104mins- exclusive of procedures): Not Applicable
ED Attending Note
-
Portions of this chart may have been created with voice recognition software.� Occasional wrong word or��sound alike� substitutions may have occurred due to the inherent limitations of voice recognition software.
Discharge Plan
Departure
Patient Disposition: Home (Routine Discharge)
Date of Disposition: 04/07/24
Time of Disposition: 17:55
Patient with high blood pressure during this ER visit?: Yes
Condition: Fair
Covid-19: Not Applicable
Discharge Problem:
Finger fracture
Instructions: Finger Fracture ED, BLOOD PRESSURE
Prescriptions:
No Action
ibuprofen 200 MG tablet
200 mg PO Q4HPRN PRN (Reason: mild foot pain)
dexmethylphenidate [Focalin] 5 mg Tablet
15 mg PO .PMPRN PRN (Reason: as directed)
clonidine HCl 0.2 mg Tablet
0.2 mg PO HS
venlafaxine [Effexor] 50 mg Tablet
50 mg PO DAILY
levalbuterol HCl
1 puff inhalation PRN PRN (Reason: as directed)
naproxen 500 mg tablet
500 mg PO BID PRN (Reason: Pain) Qty: 20 0RF
Referrals:
Klever Cool MD [Active] -
Clay Velez MD [Active] -
UNKNOWN - PT DOES,NOT KNOW [Family Provider] -
Activity Restrictions/Additional Instructions:
As discussed you do have a fracture of your left hand index finger
Wear splint for support until seen and eval by hand surgery.
Keep elevate is much as possible you ice over affected area for the next 24 hours 20 minutes at a time several times a day. Ibuprofen every 8 hours with food for pain. Return if any worsening of symptoms
Interventions
Interventions:
*Risk Screen - Suicide Last Done: 04/07/24 16:38
*General Assessment Last Done: 04/07/24 14:55
*Neglect/Abuse Screening Last Done: 04/07/24 16:38
ED- Fall Risk Assessment Last Done: 04/07/24 16:38
*ED COVID-19 Vaccine History Last Done: 04/07/24 16:38
*Nursing Disposition Last Done: 04/07/24 18:04
ED-Musculoskeletal Assessment Last Done: 04/07/24 16:38
Discharge Date and Time
Discharge Date/Time: 04/07/24 18:05
Print Language: [id number]
[2024-04-07 17:58] VITALS: BP 173/113
[2024-04-07 18:04] VITALS: BP 121/72
[2024-04-07] MEDS: MOTRIN 600 MG PO (18:05)
== END 2024-04-07 18:05 | disposition home or self-care (01) ==
LOC: EMR 14:41
PROVIDERS: EMERGENCY PHYSICIAN Emergency Medicine
DX: S62.651A Nondisplaced fracture of middle phalanx of left index finger, initial encounter for closed fracture (principal); W22.8XXA Striking against or struck by other objects, initial encounter; J45.909 Unspecified asthma, uncomplicated; K21.9 Gastro-esophageal reflux disease without esophagitis; Z90.49 Acquired absence of other specified parts of digestive tract
CPT/HCPCS: 29130; 99283; 73130

== ENCOUNTER → 2024-05-10 12:56 | Outpatient (REF) | payer OTHER, SELFPAY ==
[2024-05-10 14:12] LABS: Beta HCG Quantitative < 2.39 mIU/ml
== END ==
LOC: CLAB 12:56
PROVIDERS: ATTENDING PHYSICIAN Obstetrics & Gynecology
DX: O03.9 Complete or unspecified spontaneous abortion without complication (principal)
CPT/HCPCS: 36415; 84702; 86850; 86900; 86901

== ENCOUNTER → 2024-11-11 06:27 | Outpatient (REF) | payer OTHER, SELFPAY ==
[2024-11-11 07:30] LABS: INR 0.93; PT 12.8 Sec (11.4-14.6)
[2024-11-11 07:31] LABS: APTT 38.2 Sec (23.4-35.0)
[2024-11-11 07:41] LABS: Hematocrit 41.6 % (37.0-47.0); Hemoglobin 14.7 g/dL (12.0-16.0); Mean Corp Hgb Conc. 35.3 g/dL (33.0-37.0); Mean Corpuscular Volume 84.4 fL (81.0-99.0); Nucleated Red Blood Cells % 0 %; Platelet Count 373 10^3/uL (130-400); Red Cell Dist. Width 12.3 % (11.5-14.5)
[2024-11-11 08:05] LABS: ALT (SGPT) 79 U/L (0-35); AST (SGOT) 44 U/L (14-36); Albumin 4.7 g/dl (3.5-5.0); Alkaline Phosphatase 75 U/L (38-126); Calcium 9.4 mg/dl (8.4-10.2); Carbon Dioxide 25 mmol/L (22-30); Chloride 106 mmol/L (98-107); GGTP 53 U/L (12-43); Glucose 108 mg/dl (70-99); HDL Cholesterol 37 mg/dl; LDL Cholesterol, Calculated 196 mg/dl; Potassium 3.8 mmol/L (3.5-5.1); Sodium 139 mmol/L (135-145); Total Protein 7.7 g/dl (6.3-8.2); Very Low Density Lipoprotein 59 mg/dl (0-30)
[2024-11-11 08:14] LABS: Blood Urea Nitrogen 10 mg/dl (7-17); eGFR > 60.00
[2024-11-11 08:53] LABS: Vitamin D, 25-OH*** 23.0 ng/mL (30-80)
[2024-11-11 09:04] LABS: Ferritin 29.4 ng/ml (6.24-137)
[2024-11-11 09:19] LABS: Vitamin B12 464 pg/ml (239-931)
[2024-11-11 10:19] LABS: Glycohemoglobin (HgbA1c) 5.6 % (4.0-5.6)
[2024-11-13 08:44] LABS: ANA, IgG Reflex to HEp-2 None Detected (None Detected)
[2024-11-13 09:00] LABS: Mitochondrial M2 Ab, IgG 2.7 Units (0.0-24.9)
[2024-11-15 15:46] LABS: Hemochromatosis Specimen Whole Blood
== END ==
LOC: REG 06:27
PROVIDERS: ATTENDING PHYSICIAN Nurse Practitioner Adult Health
DX: Z00.01 Encounter for general adult medical examination with abnormal findings (principal); K76.0 Fatty (change of) liver, not elsewhere classified; E55.9 Vitamin D deficiency, unspecified; R79.89 Other specified abnormal findings of blood chemistry
CPT/HCPCS: 36415; 80053; 80061; 81256; 82103; 82306; 82390; 82607; 82728; 82784; 82977; 83036; 83525; 84443; 85025; 85610; 85730; 86038; 86381